=== PATIENT | male | born 2000 | race Caucasian/White ===

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

== ENCOUNTER 2019-10-29 15:38 | Emergency (ER) | payer BC ==
[~2019-10-29] VITALS: Ht 188 cm; Wt 72.7 kg
[2019-10-29] MEDS ORDERED: MORPHINE SULFATE 4 MG/ML, 1ML IVPush ONE (16:00)
[2019-10-29] MEDS ORDERED: ONDANSETRON 2MG/ML, 2ML IVPush ONE (16:00)
--- NOTE | 2019-10-29 16:00 | NUR ---
SUDDEN ONSET RLQ/RIGHT FLANK PAIN WITH NAUSEA/VOMITING X 3 HOURS. SXS SIMILIAR TO PRIOR KIDNEY STONE PIV PLACED FROM WHICH LABS WERE DRAWN THEN MEDICATED PER EMAR FOR PAIN AT 02/14
[2019-10-29] MEDS ORDERED: MORPHINE SULFATE 4 MG/ML, 1ML ONE ×2 (16:02→17:26)
[2019-10-29] MEDS ORDERED: ONDANSETRON 2MG/ML, 2ML ONE (16:03)
[2019-10-29 16:17] LABS: BASOPHILS # (AUTO) 0.04 x10^3/uL (0-0.1); BASOPHILS % (AUTO) 1 % (0-1); EOSINOPHILS % (AUTO) 1 % (1-7); LYMPHOCYTES # (AUTO) 2.28 x10^3/uL (1-3.4); LYMPHOCYTES % (AUTO) 33 % (22-44); MD NO; MEAN CORPUSCULAR HEMOGLOBIN 29.9 pg (27.5-34.5); MEAN CORPUSCULAR HGB CONC 34.3 g/dL (33.2-36.2); MEAN CORPUSCULAR VOLUME 87.2 fL (81-97); MEAN PLATELET VOLUME 7.5 fL (7.4-10.4); MONOCYTES # (AUTO) 0.28 x10^3/uL (0.2-0.8); MONOCYTES % (AUTO) 4 % (2-9); NEUTROPHILS # (AUTO) 4.31 x10^3/uL (1.8-6.8); NEUTROPHILS % (AUTO) 61 % (42-75); PLATELET COUNT 305 x10^3/uL (130-400); RED BLOOD COUNT 5.27 x10^6/uL (4.38-5.82); RED CELL DISTRIBUTION WIDTH 12.5 % (9.4-14.8)
[2019-10-29 16:24] LABS: ALBUMIN 4.8 g/dL (3.4-5.0); ANION GAP 3 mmol/L (5-15); CALCIUM 9.9 mg/dL (8.5-10.1); CHLORIDE 108 mmol/L (98-107); CREATININE 1.33 mg/dL (0.7-1.3)
[2019-10-29] MEDS ORDERED: OMNIPAQUE 350 MG/ML, 100ML BOTTLE ONE (17:18)
--- NOTE | 2019-10-29 17:28 | NUR ---
PT REFUSING TO PROVIDE UA AT THIS TIME.
[2019-10-29] MEDS ORDERED: KETOROLAC 30 MG/1 ML ONE (17:30)
[2019-10-29] MEDS ORDERED: KETOROLAC 30 MG/1 ML IVPush ONE (17:30)
--- NOTE | 2019-10-29 18:36 | NUR ---
PT REUFSED TO PROVIDE UA AT THIS TIME. WATER PROVIDED PER .
--- NOTE | 2019-10-29 19:06 | NUR ---
PT PROVIDED UA, SENT TO LAB AT THIS TIME.
[2019-10-29 19:26] LABS: MICROSCOPIC AUTO
--- NOTE | 2019-10-29 20:19 | NUR ---
Patient/Caregiver given discharge instructions and they have confirmed that they understand the instructions. Patient ambulatory with steady gait.
[2019-10-29 20:20] VITALS: BP 114/72
== END 2019-10-29 20:24 | disposition home or self-care (01) ==
LOC: ED 19:45
DX: N13.2 Hydronephrosis with renal and ureteral calculous obstruction (principal); N23 Unspecified renal colic; R05 Cough
CPT/HCPCS: 36415; 71045; 74177; 80048; 81001; 82040; 85025; 96374; 96375; 99285; J1885; J2270; J2405; Q9967